=== PATIENT | male | born 1955 | race Caucasian/White ===

== ENCOUNTER 2025-05-24 08:08 | Day surgery (SDC) | payer MEDICARE, SELFPAY ==
--- OUTSIDE RECORDS SUMMARY | 2025-05-17 16:42 | XMS_ITS | Encounter Summary ---
Author Organization [facility] Address [address] [place] [address] Care Team Providers Care Call Or Contact Centre Team Leader Name Role Phone Theresa Ramirez DO Amirah Primary Care Provider + Encounter Details Date Type Department Care Team (Late st Contact Info) Description 03/27/2025 Results Follow-Up [facility] [address] [place] [address] Director Digital Analytics: Jennie Sears NP [address] [place] [id number] Social History Tobacco Use Types Packs/Day Years Used Date Smoking Tobacco: Former Cigarettes 0.5 32 1 967 - 1998 Passive Smoke Exposure: Past Smokeless Tobacco: Never Comments:quit in his early 4 0's Alcohol Use Standard Drinks/Week Comments Not Currently 0 (1 standard drink = 0.6 oz pur e alcohol) alcohol just on vacations [facility] Utilities Answer Date Recorded In the past 12 months has [employer] electric, gas, oil, or water company threatened to shut off services in your home? No 09/08/2024 Hunger Vital Sign Answer Date Recorded Within the past 12 months, y ou worried that your food would run out before you got the money to buy more. Never true 09/09/19 25 Within the past 12 months, t he food you bought just didn't last and you didn't have money to get more. Never true 09/08/2024 Transportation Answer Date Recorded In the past 12 months, has l ack of reliable transportation kept you from medical appointments, meetings, work or from getting things needed for daily living? No 09/08/2024 Housing Answer Date Recorded Housing Risk Low 2 09/08/2024 Housing Risk Medium Not on file 09/08/2024 Housing Risk High Not on file 09/08/2024 What is your living situation today? [facility] 09/08/2024 Sex and Gender Information Value Date Recorded Sex Assigned at Male 03/15/2024 8:57 AM EDT Legal Sex Male 3:55 AM EDT Gender Identity Male 03/31/2024 11:37 AM EDT Sexual Orientation Straight 08/02/2024 7: 36 PM EST documented as of this encounter Plan of Treatment Upcoming Encounters Date Type Department Care Team (Late st Contact Info) Description 05/22/2025 1:00 PM EST Office Visit [address] Family Practice Department [address] [place] [phone] Amirah Cardenas DO [address] [place] [address] 08/29/2025 12:20 PM EST Follow-Up [facility] [address] [place] [phone] Randall Becker MD [address] [place] [phone] 09/19/2025 8:00 AM EDT Office Visit [address] Family Practice Department [address] [place] [address] Amirah Cardenas DO [address] [place] [address] 09/26/2025 8:00 AM EDT Office Visit [facility] [address] [place] [address] Director Digital Analytics: Sana Owens MD [address] [place] [phone] 03/23/2026 8:00 AM EDT Office Visit [address] Family Practice Department [address] [place] [address] Amirah Cardenas DO [address] [place] [phone] documented as of this encounter Visit Diagnoses Not on filedocumented in this encounter Care Teams Call Or Contact Centre Team Leader Relationship Specialty Start Date End Date Amirah Cardenas DO [address] [place] [phone] PCP - General 12/11/22 documented as of this encounter
--- OUTSIDE RECORDS SUMMARY | 2025-05-17 16:42 | XMS_ITS | Encounter Summary ---
Author Organization [facility] Address [address] [place] [address] Care Team Providers Care Brown Stock Washer Name Role Phone Theresa Ramirez DO, Diana Primary Care Provider + Encounter Details Date Type Department Care Team (Late st Contact Info) Description 12/24/2016 Orders Only [facility] [place] [address] [place] [address] Irwin Jen E [address] [place] [address] Social History Tobacco Use Types Packs/Day Years Used Date Smoking Tobacco: Never Assessed Sex and Gender Information Value Date Recorded Sex Assigned at Male 03/15/2024 8:57 AM EDT Legal Sex Male 3:55 AM EDT Gender Identity Male 03/31/2024 11:37 AM EDT Sexual Orientation Straight 08/02/2024 7: 36 PM EST documented as of this encounter Plan of Treatment Upcoming Encounters Date Type Department Care Team (Late st Contact Info) Description 05/22/2025 1:00 PM EST Office Visit [facility] [address] [facility] Family Practice Department [address] [place] [address] Amirah Cardenas DO [address] [place] [address] 08/29/2025 12:20 PM EST Follow-Up [facility] [address] [place] [address] Randall Becker MD [address] [place] [phone] 09/19/2025 8:00 AM EDT Office Visit [address] Practice Department [address] [place] [phone] Amirah Cardenas V DO [address] [place] [address] 09/26/2025 8:00 AM EDT Office Visit [facility] [address] [place] [phone] Lithographing Machine Operator: Sana Owens MD [address] [place] [phone] 03/23/2026 8:00 AM EDT Office Visit [address] Department [address] [place] [address] Amirah Cardenas DO [address] [place] [address] documented as of this encounter Visit Diagnoses Not on filedocumented in this encounter Care Teams Brown Stock Washer Relationship Specialty Start Date End Date Amirah Cardenas DO [address] [place] [address] PCP - General 12/11/22 documented as of this encounter
--- OUTSIDE RECORDS SUMMARY | 2025-05-17 16:42 | XMS_ITS | Clinical Summary ---
Author Organization [facility] Address [address] [place] [address] Care Team Providers Care Liquor Department Manager Name Role Phone Theresa Ramirez DO Amirah Primary Care Provider + Allergies No known active allergies Medications * This document contains information received from the source organization and may not represent a complete record from that organization. latanoprost (XALATAN) 0.005% ophthalmic solution Instill 1 drop into both eyes nightly. 2.5 mL 6 08/06/2020 9:58 AM EST 1 Active OneTouch Verio test strips Use 3 daily. E11.9 (please void previous prescription) 300 strip 3 2 Active OneTouch Delica Plus Lancet Use 3 daily. E11.9 300 each 3 2 Active pen needle, diabetic (Pen Needle) 29 gauge x 1/2 needle Use 1 times daily. 100 each 3 01/13/2023 1:50 PM EDT 2 Active Vitamin D3 25 mcg (1,000 unit) capsule Take 1 capsule by mouth once a day. Active acetaminophen (TYLENOL) 325 mg tablet Take 2 tablets (650 mg total) by mouth every 6 hours. 4 Active insulin lispro 100 unit/mL insulin pen Inject 4 Units under the skin 3 times a day before meals. if pre meal blood sugar is over 200 15 mL 2 5 Active Basaglar KwikPen U-100 Insulin 100 unit/mL (3 mL) pen injection Inject 26 Units under the skin every morning. 30 mL 3 05/11/2025 10:21 PM EST 5 Active lisinopriL (PRINIVIL,ZESTRIL ) 5 mg tabletIndications :Essential (primary) hypertension TAKE 1 TABLET BY MOUTH EVERY DAY 90 tablet 2 5 Active rosuvastatin (CRESTOR) 20 mg tablet TAKE 1 TABLET BY MOUTH EVERYDAY AT BEDTIME 90 tablet 1 5 Active amLODIPine (NORVASC) 5 mg tabletIndications :Essential (primary) hypertension TAKE 1 TABLET BY MOUTH EVERY DAY 90 tablet 1 5 Active aspirin 81 mg EC tablet Take 81 mg by mouth once a day. Active empagliflozin (JARDIANCE) 25 mg tablet Take 1 tablet (25 mg total) by mouth once a day. 90 tablet 3 02/28/2025 9:59 AM EDT 5 Active cyanocobalamin (vitamin B-12) 1,000 mcg tablet Take 1,000 mcg by mouth 2 (two) times a day. Active blood-glucose sensor (FreeStyle Jayda 3 Plus Sensor) device Change sensor every 15 days. E11.65 6 each 3 5 Active metFORMIN (GLUCOPHAGE) 1,000 mg tablet Take 1 tablet by mouth twice daily. E11.65 180 tablet 3 05/11/2025 10:21 PM EST 5 Active Active Problems Patient Care Coordination No te Formatting of this note migh t be different from the original. PATIENT ON JAYDA, SHARING WITH DCOE Problem Noted Date Diagnosed Date B12 deficiency 03/21/2025 Assessment & Plan (03/22/2025 7:39 PM EDT): Low normal B12. Now on supplementation 1,000 mcg twice daily. Continue routine monitoring. Cortical age-related cataract of right eye 02/06 Assessment & Plan (02/06/2025 3:01 PM EDT): May proceed to planned right cataract extraction. Lower back pain 09/15/2024 Assessment & Plan (10/02/2024 9:00 PM EDT): He will continue his current regimen of gabapentin 100 mg 3 times daily. He will also undergo bilateral L5 transforaminal epidural steroid injections with ortho. Cervical disc disorder with myelopathy of mid-cervical region 05/20/2024 Assessment & Plan (03/22/2025 7:39 PM EDT): Status post a C3-C6 laminectomy with lateral mass posterior spinal instrumented fusion on 06/24/2024. Follows with orthopedic software development specialist. Assessment & Plan (02/06/2025 3:01 PM EDT): Status post a C3-C6 laminectomy with lateral mass posterior spinal instrumented fusion on 06/24/2024. Orders: Vitamin B12 & Folate; Future Assessment & Plan (10/02/2024 9:00 PM EDT): status post a C3-C6 laminectomy with lateral mass posterior spinal instrumented fusion on 06/24/2024 . Lumbar radiculopathy 03/24/2024 Assessment & Plan (03/24/2024 2:29 PM EDT): Pain in the right buttocks with radiculopathy, right leg weakness, numbness/tingling, mild right foot drop, concern for myelopathy. MRI lumbar spine requested urgently. Advised to hold on PT. No loss of bowel or bladder function. Discussed spine surgery referral depending on MRI results Tylenol as needed for pain Orders: MRI Lumbar Spine without Contrast; Future Right foot drop 03/18/2024 Assessment & Plan (03/24/2024 2:29 PM EDT): Orders: MRI Lumbar Spine without Contrast; Future Assessment & Plan (03/18/2024 3:56 PM EDT): Possible right foot drop after spraining the right ankle 3-4 months ago. Recommend PT for conservative management. Cellulitis 03/17/2024 Chronic obstructive pulmonary disease 03/17/2024 Assessment & Plan (03/22/2025 7:39 PM EDT): Asymptomatic. Does not require inhalers. Former smoker, quit 26 years ago. 02/13/2025 PFTs showed mild obstructive defect, COPD stage I. Assessment & Plan (02/06/2025 3:01 PM EDT): Asymptomatic. Does not require inhalers. Former smoker. PFTs ordered. Orders: Pulmonary Function Test; Future Closed fracture of shaft of left ulna 03/17/2024 Depression, major, in remission 03/17/2024 Diverticulosis 03/17/2024 Former smoker 03/17/2024 Hyperkalemia 03/17/2024 Hyperlipidemia 03/17/2024 Lesion of skin of scalp 03/17/2024 Obesity (BMI 30-39.9) 03/17/2024 Osteoarthritis of knee 03/17/2024 Atherosclerotic heart diseas e of [place] coronary artery without angina pectoris 03/17/2024 Assessment & Plan (03/22/2025 7:39 PM EDT): History of SD in his 40's after a complication of a stent placement. Continues with aspirin, statin and ACEi. Had seen Dr. Alfredo more than 10 years ago. Assessment & Plan (02/06/2025 3:01 PM EDT): History of SD in his 40's after a complication of a stent placement. Continues with aspirin, statin and ACEi. Had seen Dr. Alfredo more than 10 years ago. Assessment & Plan (10/02/2024 9:00 PM EDT): History of SD in his 40's after a complication of a stent placement. Continues with aspirin, statin and ACEi. Had seen Dr. Alfredo more than 10 years ago. Orders: CBC; Future Comprehensive Metabolic Panel; Future Assessment & Plan (03/18/2024 3:56 PM EDT): History of SD in his 40's after a complication of a stent placement. Continues with aspirin, statin and ACEi. Had seen Dr. Alfredo more than 10 years ago. 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 Diagnosed in his early 40's, complicated by nephropathy. Currently taking Lantus 26 qam; metformin 1000 bid; Jardiance 25 mg daily. Trulicty discontinued due to losing too much weight. Will check b12 level with metformin use. Orders: Tdap (ADACEL/BOOSTRIX) vaccine 0.5 mL IM (age 7 or greater) Assessment & Plan (02/06/2025 3:01 PM EDT): A1c 6.9% <-- 6.7. Diagnosed in his early 40's, complicated by nephropathy. Currently taking Lantus 26 qam; metformin 1000 bid; Jardiance 25 mg daily. Trulicty discontinued due to losing too much weight. He will hold metformin the day of and Jardiance 4 days before surgery. Lantus will be cut 17 units the morning of surgery. Will check b12 level with metformin use. Orders: POCT Hemoglobin A1C, non-interfaced Assessment & Plan (10/02/2024 9:00 PM EDT): June 2024 A1c 6.8%. Diagnosed in his early 40's, complicated by nephropathy. Currently taking Lantus 30 qpm; metformin 1000 bid; Jardiance 25 mg daily; and Trulicity 4.5 mg weekly as managed by endocrinology. Continue medications as prescribed. Recommend routine A1C monitoring, annual podiatry and ophthalmology exams. Follows with mail order clerk Dr. Rollins. Orders: Hemoglobin A1c; Future Microalbumin / creatinine, urine ratio (Lab Collect); Future CBC; Future Comprehensive Metabolic Panel; Future Assessment & Plan (03/18/2024 8:38 AM EDT): Diagnosed in his early 40's, complicated by nephropathy. Currently taking Lantus 30 qpm; metformin 1000 bid; Jardiance 25 mg daily; and Trulicity 4.5 mg weekly as managed by endocrinology. Continue medications as prescribed. Recommend routine A1C monitoring, annual podiatry and ophthalmology exams. Orders: CBC; Future CAD (coronary artery disease) 07/21/2017 Depression 04/07/2009 Hypertension Dyslipidemia Myocardial infarct Resolved Problems Problem Noted Date Diagnosed Date Resolved Date Weakness of right lower extremity 03/24/2024 03/21/2025 Assessment & Plan (03/24/2024 2:29 PM EDT): Orders: MRI Lumbar Spine without Contrast; Future Numbness and tingling of right leg 03/24/2024 03/21/2025 Assessment & Plan (03/24/2024 2:29 PM EDT): Orders: MRI Lumbar Spine without Contrast; Future Ceruminosis 03/17/2024 02/06/2025 Bilateral impacted cerumen 08/05/2023 0 02/06/2025 Assessment & Plan (08/09/2023 7:42 PM EST): Successful ear lavage with improvement in his sx, follow up prn Encounters Date Type Department Care Team Description 05/09/[address] Department [address] [place] [phone] Amirah Cardenas DO Appointment 03/27/2025 8:00 AM EDT Office Visit [facility] [address] [place] [phone] Rubber Printing Machine Operator: Jennie Sears NP Controlled type 2 diabetes mellitus with microalbuminuria, with long-term current use of insulin (HCC) (Primary Dx) 03/27/2025 Results Follow-Up [facility] [address] [place] [phone] Rubber Printing Machine Operator: Jennie Sears NP 03/21/2025 8:30 AM EDT Office Visit [address] Department [address] [place] [phone] Amirah Cardenas DO Annual physical exam (Primary Dx); Controlled type 2 diabetes mellitus with microalbuminuria, with long-term current use of insulin (HCC); B12 deficiency; Atherosclerosis of [place] coronary artery of [place] heart without angina pectoris; Chronic obstructive pulmonary disease, unspecified COPD type (HCC); Cervical disc disorder with myelopathy of mid-cervical region; Skin lesion of scalp; Encounter for immunization 03/01/2025 Results Follow-Up [address] Practice Department [address] [place] [phone] Amirah Cardenas DO 02/23/2025 12:40 PM EDT Follow-Up [facility] [address] [place] [address] Radnall Becker MD Cervical disc disorder with myelopathy of mid-cervical region (Primary Dx) 02/23/2025 12:01 PM EDT - 02/23/2025 11:59 PM EDT Hospital Encounter [facility] [address] [place] [address] Randall Becker MD Fusion of spine of cervical region Discharge Disposition: Home or Self Care () 02/23/2025 Refill [facility] [address] [place] [id number] Rubber Printing Machine Operator: Sana Owens MD from Last 3 Months Immunizations Immunization Administration Dates Next Due COVID-19, Pfizer, mRNA, Biva lent Booster, PF, 30 mcg/0.3 mL dose (for age 12 y and up) 04/23/2022 Covid-19, Moderna, mRNA, Vac cine, PF, 50 mcg/0.5 mL (for age 12 y and up) 03/02/2024 Covid-19, Pfizer, mRNA, Emery valent, PF 30 mcg/0.3 mL dose (for ages 12 and older) 04/10/2022,04/10/2021,09/25/2020,09/04 Covid-19, Pfizer, mRNA, Emery valent, PF, 30 mcg/0.3 mL dose, martha-sucrose (COMIRNATY)(for ages 12 and older) 10/07/2021 Influenza, High Dose Seasona l, Preservative Free (FLUZONE HIGH-DOSE) 03/02/2024 Influenza, High Dose Seasona l, Quadrivalent PF 02/26/2022,04/10/2021,05/04/2020 Influenza, Injectable, Madin Lidia Canine Kidney, Preservative Free, Quadrivalent 05/11/2019,05/05/2018 Influenza, Injectable, Quadr ivalent Preservative Free 03/16/2023 Influenza, Injectable, Quadr ivalent, Preservative Free 04/10/2016 Influenza, Trivalent, MDV, Injectable 04/24/2020 ,04/11/2014,03/31/2013 Influenza, Unspecified 02/26/2022,2011,04/22/2011,04/19 Pneumococcal Conjugate Vacci ne, 13 Valent 07/12/2020 Pneumococcal Polysaccharide Vaccine, 23 Valent 07/29/2013,07/29/2001 RSV vaccine, recombinant, pr otein subunit RSVpreF, adjuvant reconstituted, 0.5 mL, PF 03/16/2023 Tetanus Toxoid, Reduced Diph theria Toxoid, and Acellular Pertussis Vaccine, Adsorbed 03/21/2025,02/27/2015 Zoster Vaccine Recombinant 02/26/2022,10/07/2021 Family History Medical History Relation Name Comments Diabetes type II Brother No Known Problems Father Arthritis Mother Cancer Mother lymphoma Diabetes type II Sister Relation Name Status Comments Brother Father (Age 96) Mother Sister Social History Tobacco Use Types Packs/Day Years Used Date Smoking Tobacco: Former Cigarettes 0.5 32 1 967 - 1999 Passive Smoke Exposure: Past Smokeless Tobacco: Never Tobacco Cessation:Counseling Given: Not Answered Comments:quit in his early 40's Alcohol Use Standard Drinks/Week Comments Not Currently 0 (1 standard drink = 0.6 oz pur e alcohol) alcohol just on vacations [facility] Utilities Answer Date Recorded In the past 12 months has [employer], gas, oil, or water [employer] threatened to shut off services in your [...] Orientation Straight 08/02/2024 7: 36 PM EST Last Filed Vital Signs Vital Sign Reading Time Taken Comments Blood Pressure 118/59 03/27/2025 7:40 AM EDT Pulse 48 03/27/2025 7:40 AM EDT Temperature 36.1 C (97 F) 03/21/2025 8:16 AM EDT Respiratory Rate 18 06/26/2024 7:47 AM EST Oxygen Saturation 96% 03/21/2025 8:16 AM EDT Inhaled Oxygen Concentration - - Weight 80.7 kg (178 lb) 03/27/2025 7:40 AM EDT Height 170.2 cm (5' 7 ) 03/21/2025 8:16 AM EDT Body Mass Index 27.88 03/21/2025 8:16 AM EDT Plan of Treatment Upcoming Encounters Date Type Department Care Team (Late st Contact Info) Description 05/22/2025 1:00 PM EST Office Visit [address] Family Practice Department [address] [place] [phone] Amirah Cardenas DO [address] [place] [address] 08/29/2025 12:20 PM EST Follow-Up [facility] [address] [place] [phone] Randall Becker MD [address] [place] [address] 09/19/2025 8:00 AM EDT Office Visit [address] Family Practice Department [address] [place] [phone] Amirah Cardenas V, DO [address] [place] [address] 09/26/2025 8:00 AM EDT Office Visit [facility] [address] [place] [phone] Rubber Printing Machine Operator: Winnie Rollins, Sana Middleton MD [address] [place] [phone] 03/23/2026 8:00 AM EDT Office Visit [address] Family Practice Department [address] [place] [phone] Amirah Cardenas V, DO [facility] [place] [address] Health Maintenance Due Date Last Done Comments Cologuard 1955 FOBT / Fit Test 1955 Sigmoidoscopy 1955 COVID-19 Vaccine ( season) 2025 03/02/2024, 04/23/2022, 04/10/2022, Additional history exists Pneumococcal Vaccine: 50+ Years (3 of 3 - PCV20 or PCV21) 07/12/2025 07/12/2020, 07/29/2013, 07/29/2001 Social Drivers of Health Annual Screening 09/08/2025 09/08/2024 Urine Microalbumin 09/15/2025 09/15/2024, 0 09/15/2023, 04/11/2022, Additional history exists Influenza Vaccine (#1) 2025 , 03/16/2023, 02/26/2022, Additional history exists Postponed from 03/06/2025 (Patient Declined) Hemoglobin A1C 09/24/2025 03/27/2025, 08/0 10/2024, 09/15/2024, Additional history exists Basic Metabolic Panel 10/17/2025 10/17/2024 , 09/15/2024, 06/26/2024, Additional history exists Fall Risk Screening 11/22/2025 11/22/2024 Ophthalmology Exam 2026 2025, 08/19/2023 Depression Screening and Follow-Up 03/14/2026 03/14/2025 Colon Cancer Screening 11/15/2030 Colonoscopy 11/15/2030 11/15/2020, 11/14/2020 DTaP,Tdap,and Td Vaccines (3 - Td or Tdap) 03/21/2035 03/21/2025, 02/27/2015 Abdominal Aortic Aneurysm (AAA) Screening Completed 12/03/2021 Zoster Vaccines Completed 02/26/2022, 10/07/2021 RSV Vaccine (60+ years old and patients) Completed 03/16/2023 Hepatitis C Screening Completed 03/18/2024 Alcohol/Substance Use Screening Completed 03/14/2025 Health Care Proxy Review Completed 025, 06/21/2024, 03/18/2024 Hepatitis B Vaccines Aged Out No long er eligible based on patient's age to complete this topic Medical Devices Implanted Type Area Contract Associate Manager Device Identifier Shelf Expiration Date Model / Serial / Lot Woodrow Precut [id number] - [id number] Implanted:Qty: 2 on 06/24/2024 by Randall Becker MD at [facility] Implant N/A: Posterior Cervical Medtronic [id number] / / Screw Multiaxial [id number] - [id number] Implanted:Qty: 7 on 06/24/2024 by Randall Becker MD at [facility] Screw N/A: Posterior Cervical Medtronic [id number] / / Screw Spinal Multiaxial [id number] - [id number] Implanted:Qty: 1 on 06/24/2024 by Randall Becker MD at [facility] Screw N/A: Posterior Cervical Medtronic [id number] / / Set Screw Spinal Multi Axial Infinity - [id number] Implanted:Qty: 8 on 06/24/2024 by Randall Becker MD at [facility] Screw N/A: Posterior Cervical Medtronic [id number] / / Graft Bone Putty 6cc Dbf Barbara - [id number] - [id number] Implanted:Qty: 1 on 06/24/2024 by Randall Becker MD at [facility] Tissue N/A: Posterior Cervical Medtronic 02/25/2026 [id number] / [id number] / Procedures * Due to [place] state law, this organization might not be sharing negative HIV tests. Procedure Name Priority Date/Time Associated Diagnosis Comments ALT Routine 03/27/2025 8:28 AM EDT Controlled type 2 diabetes mellitus with microalbuminuria, with long-term current use of insulin (HCC) LIPID PANEL W/REFLEX TO DIRECT LDL Routine 03/27/2025 8:28 AM EDT Controlled type 2 diabetes mellitus with microalbuminuria, with long-term current use of insulin (HCC) POCT GLYCOSYLATED HEMOGLOBIN (HGB A1C) Routine 03/27/2025 7:06 AM EDT XR CERVICAL SPINE 2 OR 3 VIEWS Routine 02/23/2025 1:03 PM EDT Fusion of spine of cervical region COMPREHENSIVE METABOLIC PANEL Routine 10/17/2024 8:26 AM EDT Hypercalcemia MICROALBUMIN, RANDOM URINE WITH CREATININE Routine 09/15/2024 8:53 AM EDT Controlled type 2 diabetes mellitus with microalbuminuria, with long-term current use of insulin HEPATITIS C ANTIBODY W/REFLEX TO HCV RNA, QUANTITATIVE PCR Routine 03/18/2024 8:47 AM EDT Encounter for hepatitis C screening test for low risk patient US ABDOMINAL AORTA Routine 12/03/2021 7: 11 AM EDT HM COLONOSCOPY 11/15/2020 1:55 PM EDT from Last 3 Months or Most Recently Relevant to Health Maintenance Results * Due to [place] state law, this organization might not be sharing negative HIV tests. * Lipid Panel w/Reflex to Direct LDL (03/27/2025 8:28 AM EDT) Cholesterol 145 <=199 mg/dL 03/27/2025 9:57 AM EDT [facility] Triglycerides 137 <=149 mg/dL 03/27/2025 9:57 AM EDT [facility] Cholesterol, HDL 55 40 - 59 mg/dL 03/27/2025 9:57 AM EDT [facility] Cholesterol, Non-HDL 90 mg/dL 03/27/2025 9:57 AM EDT [facility] LDL Cholesterol 63 <100 mg/dL 03/27/2025 9:57 AM EDT [facility] Comment:LDL-C is calculated using the Friedewald calculation. VLDL 27.4 mg/dL 03/27/2025 9:57 AM EDT [facility] Cholesterol/HDL Ratio 2.6 <5.0 03/27/2025 9:57 AM EDT [facility] Blood Structure of peripheral vein / Unknown Venipuncture / Unknown 03/27/2025 8:28 AM EDT 03/27/2025 9:08 AM EDT Narrative [facility] - 03/27/2025 9:57 AM EDT Adult Treatment Panel III Guidelines of NCEP 2001 Category: Total Cholesterol (mg/dL) Desirable <200 Borderline High 200-239 High >=240 Category: LDL Cholesterol (mg/dL) Optimal <100 Near Optimal/Above Optimal 100-129 Borderline High 130-159 High 160-189 Very High >=190 Category: HDL Cholesterol (mg/dL) Low <40 High >=60 NCEP's Expert Panel on Blood Cholesterol in Children and Adolescents Category: Total Cholesterol (mg/dL) Desirable <170 Borderline High 170-199 High >=200 Category: LDL Cholesterol (mg/dL) Desirable <110 Borderline High 110-129 High >=130 Jennie Rivera POOL TABLE OPERATOR LAB BLOOD ORDERABLES F inal Result [facility] [address] [place] [address], [place] * ALT (03/27/2025 8:28 AM EDT) ALT 20 10 - 40 U/L 03/27/2025 9:57 AM EDT [facility] Blood Structure of peripheral vein / Unknown Venipuncture / Unknown 03/27/2025 8:28 AM EDT 03/27/2025 9:08 AM EDT Jennie Rivera POOL TABLE OPERATOR LAB BLOOD ORDERABLES F inal Result Performing Organization Address [facility] Co de Phone Number [facility] [address] [place] [address], [place] * (ABNORMAL) POCT Glycosylated Hemoglobin (HGB A1C), interfaced (03/27/2025 7:06 AM EDT) Hemoglobin A1C, POCT 6.6(H) <=5.6 % 03/27/2025 7:49 AM EDT [facility] Comment: A1C Recommendation for Non- Adults with Diabetes: <7.0% ADA 2011 Standards of Medical Care in Diabetes Blood 03/27/2025 7:06 AM EDT 03/27/2025 7:49 AM EDT Jennie Rivera POOL TABLE OPERATOR LAB POCT ORDERABLES - DEVICE Final Result [facility], [facility] [address] [place] [address], [place] * XR Spine Cervical 2 or 3 Views (02/23/2025 1:03 PM EDT) Anatomical Region Laterality Modality Spine, C-spine Computed Radiogr aphy 02/24/2025 4:55 AM EDT Impressions 02/24/2025 4:57 AM EDT FINDINGS/IMPRESSION: Prior posterior decompression and posterior interbody to spinal fusion of C3 to C6 with paired posterior rods and lateral mass screws. No radiographic evidence of hardware complications. The normal cervical lordosis is straightened. Trace retrolisthesis of C3-C4 to C5-C6. Similar multilevel disc degeneration, moderate to severe at C3-C4 and C5-C6. Multilevel facet arthropathy and uncovertebral spurring. Atlantodens interval is not widened. If this radiology report contains a blank impression section, it is an incomplete radiology report. Please contact the interpreting radiologist or applicable radiology division as soon as possible to obtain the completed interpretation. Workstation ID: [id number] Narrative 02/24/2025 4:57 AM EDT COMPARISON: 11/22/2024. Resulting Agency Comment [id number] Procedure Note Ramsey Goldstein MD - 02/24/2025 COMPARISON: 11/22/2024. IMPRESSION: FINDINGS/IMPRESSION: Prior posterior decompression and posterior interbody to spinal fusion ofC3 to C6 with paired posterior rods and lateral mass screws. Noradiographic evidence of hardware complications. The normal cervical lordosis is straightened. Trace retrolisthesis ofC3-C4 to C5-C6. Similar multilevel disc degeneration, moderate to severeat C3-C4 and C5-C6. Multilevel facet arthropathy and uncovertebralspurring. Atlantodens interval is not widened. If this radiology report contains a blank impression section, it is anincomplete radiology report. Please contact the interpreting radiologistor applicable radiology division as soon as possible to obtain thecompleted interpretation. Workstation ID: [id number] us Randall Becker MD IMG XR PROCEDURES Final Res ult * (ABNORMAL) Comprehensive Metabolic Panel (10/17/2024 8:26 AM EDT) NA 138 136 - 145 mmol/L 10/17/2024 2:40 PM EDT [facility] K 4.9 3.5 - 5.1 mmol/L 10/17/2024 2:40 PM EDT [facility] Cl 101 98 - 109 mmol/L 10/17/2024 2:40 PM EDT [facility] CO2 25 22 - 32 mmol/L 10/17/2024 2:40 PM EDT [facility] Anion Gap 17 >=0 10/17/2024 2:40 PM EDT [facility] Glucose 119(H) 60 - 99 mg/dL 10/17/2024 2:40 PM EDT [facility] Creatinine 0.78 0.50 - 1.12 mg/dL 10/17/2024 2:40 PM EDT [facility] Calcium 10.2 8.4 - 10.4 mg/dL 10/17/2024 2:40 PM EDT [facility] Total Protein 7.8 6.6 - 8.7 g/dL 10/17/2024 2:40 PM EDT [facility] Albumin 4.7 3.5 - 5.0 g/dL 10/17/2024 2:40 PM EDT [facility] Bilirubin, Total 0.5 0.2 - 1.2 mg/dL 10/17/2024 2:40 PM EDT [facility] Alkaline Phosphatase 61 40 - 129 U/L 10/17/2024 2:40 PM EDT [facility] AST 23 0 - 40 U/L 10/17/2024 2:40 PM EDT [facility] ALT 15 <=41 U/L 10/17/2024 2:40 PM EDT [facility] BUN 19 8 - 23 mg/dL 10/17/2024 2:40 PM EDT [facility] eGFR >90 >=60 mL/min/1. 73m2 10/17/2024 2:40 PM EDT [facility] Comment:The estimated glomer ular filtration rate (eGFR) is calculated using a new formula developed by the NKF-ASN task force to eliminate race-based correction factors. The new formula uses serum/plasma creatinine, age, and gender to determine eGFR. A value below 60mls/min might indicate kidney disease and will be flagged. For additional information, see Nneka santos al, Am J Kidney Dis. 2021;79(2):268- 288, A Unifying Approach for GFR estimation: Recommendations of the NKF-ASN Task Force on Reassessing the Inclusion of Race in Diagnosing Kidney Disease . Globulin, Total 3.1 2.1 - 4.2 g/dL 10/17/2024 2:40 PM EDT [facility] A/G Ratio 1.5 1.5 - 3.0 10/17/2024 2:40 PM EDT [facility] Blood Structure of peripheral vein / Unknown Venipuncture / Unknown 10/17/2024 8:26 AM EDT 10/17/2024 12:53 PM EDT Amirah Immenhausen V, DO LAB BLOOD ORDERABLES Fin al Result [facility] [address] [place] [address], [place] [phone] * Microalbumin / creatinine, urine ratio (Lab Collect) (09/15/2024 8:53 AM EDT) Creatinine, Urine 72 mg/dL 09/15/2024 3:10 PM EDT [facility] Microalbumin, Urine 10 <=20 mg/L 09/15/2024 3:10 PM EDT [facility] Microalb/Creat Ratio, Random Urine 13.9 1.3 - 30.0 mg/g 09/15/2024 3:10 PM EDT [facility] Urine Urine specimen collection, clean catch / Unknown Non-Blood Collection / Unknown 09/15/2024 8:53 AM EDT 09/15/2024 12:48 PM EDT us Amirah Immenhausen V, DO LAB URINE ORDERABLES Fin al Result [facility] [address] [facility] [facility] [address] [place] [address], [place] [phone] * Hepatitis C Antibody w/Reflex to HCV RNA, Quantitative PCR (03/18/2024 8:47 AM EDT) Hepatitis C Antibody Interpretation Nonreactive Nonreactive 03/18/2024 7:13 PM EDT [facility] Blood Structure of peripheral vein / Unknown Venipuncture / Unknown 03/18/2024 8:47 AM EDT 03/18/2024 12:50 PM EDT Amirah Immenhausen V, DO LAB BLOOD ORDERABLES Fin al Result Performing Organization Address City/[facility]/ZIP Co de Phone Number [facility] [address] [place] [address], [place] [phone] * US Abdominal Aorta (12/03/2021 7:11 AM EDT) Anatomical Region Laterality Modality Body N/A Ultrasound 12/03/2021 9:58 AM EDT Narrative 12/03/2021 10:02 AM EDT DEPARTMENT OF RADIOLOGY Patient: [place] LARKIN Leandra Unit #: [id number] Ordering MD: LATOYA FRITZ DO : 1955 Procedure: US Aorta Screening Age: 66 Location: T Exam Date: 12/03/21 Status: REG CLI Room/Bed: Primary MD: LATOYA FRITZ DO Patient Order: [id number] Additional Copy: LATOYA FRITZ DO - INDICATION: Former cigarette smoker TECHNIQUE: Nichols scale and color Doppler ultrasound images of the retroperitoneum (aorta and kidneys). COMPARISON: None. FINDINGS: Aorta: Proximal: 2.7 x 2.4 cm. Mid: 1.9 x 1.9 cm. Distal: 1.8 x 1.7 cm. There is no evidence of abdominal aortic aneurysm. Wall to wall color flow is identified. Moderate atherosclerotic calcification is noted. Common iliac arteries: Right: 1.3 x 1.0 cm. Left: 1.2 x 1 0.9 cm. Kidneys: The right kidney measures 11.7 cm. The left kidney measures 1.8 cm. There is no renal stone, mass, or hydronephrosis. There is a 1.6 cm cyst in the upper pole of the right kidney. A 1.3 cm cyst is noted in the lower pole of the right kidney. IMPRESSION: No evidence of abdominal aortic aneurysm. Severe atherosclerotic calcification of the abdominal aorta. POI: KELLI Saucedo ELECTRONICALLY SIGNED BY: KAVON ODELL MD 12/03/2021 9:59 AM Procedure Note Kavon Odell W - 04/01/2023 DEPARTMENTOF RADIOLOGY Patsy t: [place] LARKIN Unit #:[id number] Ordering MD: LATOYA FRITZ DO :1955 Procedure: US Aorta Screening Age:66 Location: [facility] ExamDate: 12/03/21 Status: REG [facility]/Bed: Primary MD: LATOYA FRITZ DO PatientAcct #: [id number] Order:[id number] Additional Copy: LATOYA FRITZ DO - INDICATION: Former cigarette smoker TECHNIQUE: Nichols scale and color Doppler ultrasound images of theretroperitoneum (aorta and kidneys). COMPARISON: None. FINDINGS: Aorta: Proximal: 2.7 x 2.4 cm. Mid: 1.9 x 1.9 cm. Distal: 1.8 x 1.7 cm.There is no evidence of abdominal aortic aneurysm. Wall to wall color flow is identified. Moderate atherosclerotic calcification isnoted. Common iliac arteries: Right: 1.3 x 1.0 cm. Left: 1.2 x 1 0.9 cm. Kidneys: The right kidney measures 11.7 cm. The left kidney measures 1.8cm. There is no renal stone, mass, or hydronephrosis. There is a 1.6 cm cyst in the upper pole of the right kidney. A 1.3 cmcyst is noted in the lower pole of the right kidney. IMPRESSION: No evidence of abdominal aortic aneurysm. Severe atheroscleroticcalcification of the abdominal aorta. POI: KELLI Saucedo ELECTRONICALLY SIGNED BY: KAVON ODELL MD 12/03/2021 9:59 AM us Latoya Fritz IMG US PROCEDURES Final Result * HM Colonoscopy (11/15/2020 1:55 PM EDT) us Onbase Scan [facility] Final Resu lt from Last 3 Months or Most Recently Relevant to Health Maintenance Insurance [employer] MCR REPLACE PPO Advance Directives * Full Code (Latest Code Status on File) Date Activated Date Inactivated Comments 06/24/2024 12:05 PM 06/26/2024 2:14 PM * Full Code Date Activated Date Inactivated Comments 06/24/2024 5:54 AM 06/24/2024 12:05 PM Healthcare Agents on File Name Relationship Healthcare Agent [facility] p Communication Winnie Larkin Spouse Health Care Agent [email or web address] Care Teams Liquor Department Manager Relationship Specialty Start Date End Date Amirah Cardenas DO [address] [place] [address] PCP - General 12/11/22
--- OUTSIDE RECORDS SUMMARY | 2025-05-17 16:42 | XMS_ITS | Encounter Summary ---
Author Organization [facility] Address [address] [place] [address] Care Team Providers Care Air Support Operations Operator Name Role Phone Theresa Ramirez DO, Diana Primary Care Provider + Encounter Details Date Type Department Care Team (Late st Contact Info) Description 01/15/2017 Orders Only [facility] Presciption Center Pharmacy [facility] [address] [place] [address] Irwin Jen E [address] [place] [address] Social History Tobacco Use Types Packs/Day Years [...] Description 05/22/2025 1:00 PM EST Office Visit [facility] [address] [facility] Family Practice Department [address] [place] [address] Amirah Cardenas DO [address] [place] [address] 08/29/2025 12:20 PM EST Follow-Up [facility] [address] [place] [address] Randall Becker MD [address] [place] [address] 09/19/2025 8:00 AM EDT Office Visit [address] Practice Department [address] [place] [address] Amirah Cradenas V DO [address] [place] [address] 09/26/2025 8:00 AM EDT Office Visit [facility] [address] [place] [address] Agency Service Coordinator: Sana Owens MD [address] [place] [address] 03/23/2026 8:00 AM EDT Office Visit [address] Department [address] [place] [address] Amirah Cardenas DO [address] [place] [address] documented as of this encounter Visit Diagnoses Not on filedocumented in this encounter Care Teams Air Support Operations Operator Relationship Specialty Start Date End Date Amirah Cardenas DO [address] [place] [address] PCP - General 12/11/22 documented as of this encounter
--- OUTSIDE RECORDS SUMMARY | 2025-05-17 16:42 | XMS_ITS | Encounter Summary ---
Author Organization [facility] Address [address] [place] [address] Care Team Providers Care Cyber Security Consultant Name Role Phone Theresa Ramirez DO, Diana Primary Care Provider + Encounter Details Date Type Department Care Team (Late st Contact Info) Description 01/19/2017 Orders Only [facility] Pharmacy [facility] [address] [place] [address] Titus Elizondo MD [address] [place] [address] Social History Tobacco Use Types Packs/Day Years [...] Description 05/22/2025 1:00 PM EST Office Visit [address] Family Practice Department [address] [place] [address] Amirah Cardenas DO [address] [place] [address] 08/29/2025 12:20 PM EST Follow-Up [facility] [address] [place] [address] Randall Becker MD [address] [place] [address] 09/19/2025 8:00 AM EDT Office Visit [address] Practice Department [address] [place] [address] Amirah Cardenas V DO [address] [place] [address] 09/26/2025 8:00 AM EDT Office Visit [facility] [address] [place] [address] Tailings Worker: Sana Owens MD [address] [place] [address] 03/23/2026 8:00 AM EDT Office Visit [address] Department [address] [place] [address] Amirah Cardenas DO [address] [place] [address] documented as of this encounter Visit Diagnoses Not on filedocumented in this encounter Care Teams Cyber Security Consultant Relationship Specialty Start Date End Date Amirah Cardenas DO [address] [place] [address] PCP - General 12/11/22 documented as of this encounter
--- OUTSIDE RECORDS SUMMARY | 2025-05-17 16:42 | XMS_ITS | Encounter Summary ---
Author Organization [facility] Address [address] [place] [address] Care Team Providers Care Advice Nurse Name Role Phone Theresa Ramirez DO, Diana Primary Care Provider + Reason for Visit * Reason Onset Date Comments Appointment 05/09/2025 Encounter Details Date Type Department Care Team (Late st Contact Info) Description 05/09/[address] Family Practice Department [address] [place] [address] Amirah Cardenas DO [address] [place] [address] Appointment Social History Tobacco Use Types Packs/Day Years Used Date Smoking Tobacco: Former Cigarettes 0.5 32 1 967 - 1998 Passive Smoke Exposure: Past Smokeless Tobacco: Never Comments:quit in his early 4 0's Alcohol Use Standard Drinks/Week Comments Not Currently 0 (1 standard drink = 0.6 oz pur e alcohol) alcohol just on vacations [facility] Utilities Answer Date Recorded In the past 12 months has e electric, gas, oil, or water company threatened [...] PM EST documented as of this encounter Miscellaneous Notes * Telephone Encounter - Bryan Vang - 05/09/2025 12:29 PM EST Office of Dr Randall Dos Santos [place] [phone] regarding this matter and morris gamble a cb @ [phone]. * Telephone Encounter - Marcos Hill - 05/09/2025 10:13 AM EST Madelyn calling from [facility] calling to sched a preop apt for pt before upcoming eye muscle surg on 05/24/2025, please advise as no availability to sched Madelyn cb# [phone] documented in this encounter Plan of Treatment Upcoming Encounters Date Type Department Care Team (Late st Contact Info) Description 05/22/2025 1:00 PM EST Office Visit [address] Family Practice Department [address] [place] [address] Amirah Cardenas DO [address] [place] [address] 08/29/2025 12:20 PM EST Follow-Up [facility] [address] [place] [address] Randall Becker MD [address] [place] [address] 09/19/2025 8:00 AM EDT Office Visit [address] Practice Department [address] [place] [address] Amirah Cardenas V DO [address] [place] [address] 09/26/2025 8:00 AM EDT Office Visit [facility] Diabetes [facility] [address] [place] [address] Garment Worker: Sana Owens MD [address] [place] [address] 03/23/2026 8:00 AM EDT Office Visit [address] Department [address] [place] [address] Amirah Cardenas DO [address] [place] [address] documented as of this encounter Visit Diagnoses Not on filedocumented in this encounter Care Teams Advice Nurse Relationship Specialty Start Date End Date Amirah Cardenas DO [address] [place] [address] PCP - General 12/11/22 documented as of this encounter
--- NOTE | 2025-05-22 09:28 | HO.ANESPROP2 ---
Documented by User: Alla Bingham NP 05/23/25 11:52 HPI - Anesthesia Eval Consult details Narrative: 70 yr old male for bilateral Lateral Rectus Eye Muscle Recession Medically optimized by PCP at 05/22/25 visit. CAD: H/O cardiac stent in 40s; on ASA, statin & MEETA; saw cardiology last >10 yrs ago. COPD: former smoker, asymptomatic, no inhaler use at all. Type 2 DM: controlled Anesthesia Pre-Procedure Meds Is the patient on any of the following meds?: SGLT2 Inhib PMFSH Past Medical History Medical History Elevated cholesterol HTN (hypertension) Diabetes Fractured skull CAD (coronary artery disease) Surgical History Surgical History History of surgery on lower extremity Hx of fusion of cervical spine Hx of right cataract extraction H/O colonoscopy Hx of heart artery stent Social History Social History Are you a primary day care home provider to a significant other at home: No Do you presently have visiting nurse or other home services: No Patient Tobacco Use Status: Former Tobacco user Tobacco use type: Cigarette Years Smoked: 20 Use of substances other than those prescribed or required for medical reasons: No Have you been hit, kicked, punched, or otherwise hurt by someone within the past year? If so, by whom?: No Spiritual Healthcare Practices: no Jainism Healthcare Practices: no Cultural Healthcare Practices: no Are you DNR?: No Advance Directives on File: No Meds Allergies Allergy/AdvReac Type Severity Reaction Status Date / Time No Known Allergies Allergy Verified 05/22/25 08:33 Home Medications ?Medication ?Instructions ?Recorded ?Confirmed ?Last Taken ?Type amlodipine 5 mg tablet 5 mg PO DAILY 05/22/25 05/24/25 05/24/25 06:00 History aspirin 81 mg tablet,delayed 81 mg PO DAILY 05/22/25 05/24/25 Unknown History release cholecalciferol (vitamin D3) 125 125 mcg PO DAILY 05/22/25 05/24/25 Unknown History mcg (5,000 unit) tablet (Vitamin D3) cyanocobalamin (vitamin B-12) 1,000 mcg PO BID 05/22/25 05/24/25 Unknown History 1,000 mcg tablet (Vitamin B-12) empagliflozin 25 mg tablet 25 mg PO DAILY 05/22/25 05/24/25 05/21/25 05:00 History (Jardiance) insulin glargine 100 unit/mL (3 26 unit subcut QAM 05/22/25 05/24/25 05/24/25 06:00 History mL) subcutaneous pen (Basaglar KwikPen U-100 Insulin) latanoprost 0.005 % eye drops 1 drp ophthalmic (eye) BEDTIME 05/22/25 05/24/25 Unknown History lisinopril 5 mg tablet 5 mg PO DAILY 05/22/25 05/24/25 Unknown History metformin 1,000 mg tablet 1,000 mg PO BID 05/22/25 05/24/25 Unknown History rosuvastatin 20 mg tablet 20 mg PO BEDTIME 05/22/25 05/24/25 Unknown History Documented by User: Armando Parsons MD 05/24/25 12:06 [facility] Past Medical History Medical History Elevated cholesterol HTN (hypertension) Diabetes Fractured skull CAD (coronary artery disease) Family History Family history of problems with anesthesia: No Surgical History Surgical History History of surgery on lower extremity Hx of fusion of cervical spine Hx of right cataract extraction H/O colonoscopy Hx of heart artery stent History of Problems with Anesthesia: No Social History Social History Are you a primary day care home provider to a significant other at home: No Do you presently have visiting nurse or other home services: No Patient Tobacco Use Status: Former Tobacco user Tobacco use type: Cigarette Years Smoked: 20 Use of substances other than those prescribed or required for medical reasons: No Have you been hit, kicked, punched, or otherwise hurt by someone within the past year? If so, by whom?: No Spiritual Healthcare Practices: no Jainism Healthcare Practices: no Cultural Healthcare Practices: no Are you DNR?: No Advance Directives on File: No Meds Allergies Allergy/AdvReac Type Severity Reaction Status Date / Time No Known Allergies Allergy Verified 05/22/25 08:33 Home Medications ?Medication ?Instructions ?Recorded ?Confirmed ?Last Taken ?Type amlodipine 5 mg tablet 5 mg PO DAILY 05/22/25 05/24/25 05/24/25 06:00 History aspirin 81 mg tablet,delayed 81 mg PO DAILY 05/22/25 05/24/25 Unknown History release cholecalciferol (vitamin D3) 125 125 mcg PO DAILY 05/22/25 05/24/25 Unknown History mcg (5,000 unit) tablet (Vitamin D3) cyanocobalamin (vitamin B-12) 1,000 mcg PO BID 05/22/25 05/24/25 Unknown History 1,000 mcg tablet (Vitamin B-12) empagliflozin 25 mg tablet 25 mg PO DAILY 05/22/25 05/24/25 05/21/25 05:00 History (Jardiance) insulin glargine 100 unit/mL (3 26 unit subcut QAM 05/22/25 05/24/25 05/24/25 06:00 History mL) subcutaneous pen (Cathyaglar JonhPen U-100 Insulin) latanoprost 0.005 % eye drops 1 drp ophthalmic (eye) BEDTIME 05/22/25 05/24/25 Unknown History lisinopril 5 mg tablet 5 mg PO DAILY 05/22/25 05/24/25 Unknown History metformin 1,000 mg tablet 1,000 mg PO BID 05/22/25 05/24/25 Unknown History rosuvastatin 20 mg tablet 20 mg PO BEDTIME 05/22/25 05/24/25 Unknown History Exam Exam Date and Time: 05/24/25 Airway Mallampati Class: I TM Dist: >3cm Neck ROM: Full Denture: Upper and Lower Heart: rrr Lungs: ctab vesicular Assessment and Plan Assessment Anesthesia Assessment: Anesthesia Plan Discussed and Chart Reviewed Final Anesthetic Review Family History of Problems with Anesthesia: No History of Problems with Anesthesia: No NPO: Yes ASA Class: III Final Preanesthetic Review: No Changes in Pt Med Stat, Meds/Allgs Chart Reviewed, Consent Obtained/Reviewed and Anes Risks/Benef Reviewed Patient Risk: Low Procedure Risk: Low Anesthetic Plan Anesthetic Plan: GA Disposition: Standard PACU
[2025-05-22 09:47] VITALS: BMI 27.4
[2025-05-24 10:10] VITALS: BMI 27.4
[2025-05-24 10:22] VITALS: BP 100/55; PULSE 48; RESP 16; TEMP 36.1; O2SAT 97
[2025-05-24] MEDS: Lactated Ringers 1,000 ML 100 ML IVCONT (10:33)
[2025-05-24 10:37] LABS: Glucose, Whole Blood 107 mg/dL (60-115)
[2025-05-24 13:03] VITALS: BP 141/71; PULSE 63; RESP 9; TEMP 36.1; O2SAT 99
[2025-05-24 13:05] VITALS: BP 121/62; PULSE 60; RESP 12; O2SAT 100
[2025-05-24 13:10] VITALS: BP 121/62; PULSE 60; RESP 14; O2SAT 99
[2025-05-24 13:15] VITALS: BP 125/64; PULSE 59; RESP 14; O2SAT 99
--- NOTE | 2025-05-24 13:24 | HO.OPHTHAL ---
Ophthalmology Operative Note Date of Service: 05/24/25 Narrative: Diagnosis exotropia. Postoperative diagnosis same. Procedure bilateral lateral rectus recessions of [address] Dos Santos. Anesthesia general. Complications none. The patient was brought to the operating room placed under general anesthesia. The eyes were prepped and draped in the usual sterile ophthalmic fashion. A lid speculum was placed in the right eye and an incision was made down to bare sclera in the inferotemporal fornix. The lateral rectus was hooked and secured with a double-armed Vicryl suture. The muscle was then disinserted from the globe and reattached to a position 5 mm behind the original insertion. Conjunctiva was closed with interrupted Vicryl sutures. An identical procedure was then performed on the left eye. The patient was then awoken from general anesthesia and discharged to postoperative recovery in good condition.
[2025-05-24 13:30] VITALS: BP 136/69; PULSE 62; RESP 10; TEMP 36.6; O2SAT 98
== END 2025-05-24 13:54 | disposition home or self-care (01) ==
PROVIDERS: PCP Family Medicine; Visit Provider Ophthalmology
PROC: (CPT 67311; principal; 2025-05-24 12:50)
DX: H53.2 Diplopia (principal); H50.10 Unspecified exotropia; E11.29 Type 2 diabetes mellitus with other diabetic kidney complication; R80.9 Proteinuria, unspecified; I25.10 Atherosclerotic heart disease of native coronary artery without angina pectoris; Z95.5 Presence of coronary angioplasty implant and graft; I10 Essential (primary) hypertension; J44.9 Chronic obstructive pulmonary disease, unspecified; I25.2 Old myocardial infarction; M50.022 Cervical disc disorder at C5-C6 level with myelopathy; Z79.82 Long term (current) use of aspirin; Z79.84 Long term (current) use of oral hypoglycemic drugs; Z79.4 Long term (current) use of insulin; Z79.01 Long term (current) use of anticoagulants; Z98.1 Arthrodesis status; Z87.891 Personal history of nicotine dependence
CPT/HCPCS: 67311; 82947; J0131; J0461; J1100; J2003; J2371; J2405; J2704; J3010